=== PATIENT | male | born 1940 | race Caucasian/White ===

== ENCOUNTER → 2017-01-17 09:38 | Outpatient (CLI) | payer BC | END | disposition home or self-care (01) | LOC: D.US 09:38 | DX: Z72.0 Tobacco use (principal); E11.22 Type 2 diabetes mellitus with diabetic chronic kidney disease; N28.9 Disorder of kidney and ureter, unspecified; Z68.28 Body mass index [BMI] 28.0-28.9, adult; I10 Essential (primary) hypertension ==